=== PATIENT | male | born 1995 | race African-American/Black ===

== ENCOUNTER 2019-03-09 06:53 | Emergency (ER) | payer OTHER ==
[~2019-03-09] VITALS: Ht 167.6 cm; Wt 73.0 kg
[2019-03-09] MEDS ORDERED: TETANUS, DIPHTHERIA, PERTUSSIS VAC/PF 0.5ML (>7YR OLD) IM ONE (07:45)
[2019-03-09] MEDS ORDERED: LIDOCAINE HCL/PF 1% 10 MG/ML 5ML VIAL IJ ONE (07:45)
[2019-03-09] MEDS ORDERED: KETOROLAC 30MG/ML VIAL IM ONE (07:45)
[2019-03-09] MEDS ORDERED: BACITRACIN ZINC OINT UDPKT TOP ONE (07:45)
[2019-03-09 11:38] VITALS: BP 113/71
== END 2019-03-09 11:53 | disposition home or self-care (01) ==
LOC: ER 06:53
DX: S60.222A Contusion of left hand, initial encounter (principal); S70.02XA Contusion of left hip, initial encounter; S80.02XA Contusion of left knee, initial encounter; S61.211A Laceration without foreign body of left index finger without damage to nail, initial encounter; S61.213A Laceration without foreign body of left middle finger without damage to nail, initial encounter; S61.215A Laceration without foreign body of left ring finger without damage to nail, initial encounter; S61.217A Laceration without foreign body of left little finger without damage to nail, initial encounter; R03.0 Elevated blood-pressure reading, without diagnosis of hypertension; V23.4XXA Motorcycle driver injured in collision with car, pick-up truck or van in traffic accident, initial encounter; Y93.89 Activity, other specified; Y92.410 Unspecified street and highway as the place of occurrence of the external cause; Z23 Encounter for immunization
CPT/HCPCS: 12002; 73130; 90471; 90715; 96372; 99283; J1885; J3490; Z7610

== ENCOUNTER 2019-03-12 15:58 | Emergency (ER) | payer OTHER ==
[~2019-03-12] VITALS: Ht 167.6 cm; Wt 74.0 kg
[2019-03-12 19:12] VITALS: BP 138/74
== END 2019-03-12 19:13 | disposition home or self-care (01) ==
LOC: ER 15:58
DX: S61.412A Laceration without foreign body of left hand, initial encounter (principal); X58.XXXA Exposure to other specified factors, initial encounter; Y93.89 Activity, other specified; Y92.89 Other specified places as the place of occurrence of the external cause; Y99.8 Other external cause status; Z48.00 Encounter for change or removal of nonsurgical wound dressing
CPT/HCPCS: 99282

== ENCOUNTER 2019-03-23 09:23 | Emergency (ER) | payer OTHER ==
[~2019-03-23] VITALS: Ht 167.6 cm; Wt 73.0 kg
[2019-03-23 09:54] VITALS: BP 117/65
== END 2019-03-23 12:13 | disposition home or self-care (01) ==
LOC: ER 09:23
DX: T81.30XA Disruption of wound, unspecified, initial encounter (principal); Y84.9 Medical procedure, unspecified as the cause of abnormal reaction of the patient, or of later complication, without mention of misadventure at the time of the procedure; Y92.89 Other specified places as the place of occurrence of the external cause
CPT/HCPCS: 99282